=== PATIENT | female | born 1945 | race Caucasian/White ===

== ENCOUNTER 2019-05-05 08:10 | Day surgery (SDC) | payer MEDICARE ==
[~2019-05-05] VITALS: Ht 154.9 cm; Wt 42.3 kg
[~2019-05-05 08:10] MED LIST: ATEN100; CEPH500 PO; HYDACE5 PO; LOSA50 PO
--- NOTE | 2019-05-05 09:13 | NUR ---
05/05/19 09 Myrna Lazcano (Mame SCOPE YELLOW/GREEN, NUMBER: [id number]
[2019-05-05] MEDS ORDERED: CARV25 PO ×2 (10:27)
[2019-05-05] MEDS ORDERED: LOSARTAN POTAS100 M1 PO (10:28)
[2019-05-05] MEDS ORDERED: ESCITALOPRAM OX20 M1 PO (10:28)
[2019-05-05] MEDS ORDERED: AMLODIPINE BESY10 MG PO (10:28)
[2019-05-05] MEDS ORDERED: PRAVASTATIN SOD40 MG PO (10:28)
== END 2019-05-05 10:30 | disposition home or self-care (01) ==
LOC: ORSCSDS 08:10
PROVIDERS: Surgery
PROC: 0DBK8ZX Excision of Ascending Colon, Via Natural or Artificial Opening Endoscopic, Diagnostic (ICD-10-PCS; principal; 2019-05-05 09:30)
DX: Z12.11 Encounter for screening for malignant neoplasm of colon (principal); Z86.010 Personal history of colon polyps; D12.2 Benign neoplasm of ascending colon; K57.30 Diverticulosis of large intestine without perforation or abscess without bleeding; I10 Essential (primary) hypertension; F32.9 Major depressive disorder, single episode, unspecified; F17.210 Nicotine dependence, cigarettes, uncomplicated; Z79.899 Other long term (current) drug therapy
CPT/HCPCS: 88305; J2405; J2704; J7120